=== PATIENT | male | born 1935 | race Caucasian/White ===

== ENCOUNTER → 2023-06-15 09:22 | Outpatient (REF) | payer MEDICARE, OTHER, SELFPAY ==
[2023-06-15 10:04] LABS: % Basophils 0.7 % (0-2); % Eosinophils 5.6 % (0-6); % Immature Granulocytes 0.4 % (0-0.5); % Lymphocytes 8.9 % (20.5-51.1); % Monocytes 11.9 % (1.7-9.3); % Neutrophils 72.5 % (42.2-75.2); Absolute Eosinophils 0.3 10^3/uL (0-0.7); Absolute Lymphocytes 0.4 10^3/uL (1.2-3.4); Absolute Monocytes 0.6 10^3/uL (0.1-0.6); Absolute Neutrophils 3.3 10^3/uL (1.4-6.5); Hematocrit 32.3 % (39.0-52.0); Hemoglobin 10.8 g/dL (13.0-18.0); Mean Corp Hgb Conc. 33.4 g/dL (33.0-37.0); Mean Corpuscular Hgb 32.7 pg (27.0-31.0); Mean Corpuscular Volume 97.9 fL (80.0-94.0); Mean Platelet Volume 11.1 fL (7.4-10.4); Nucleated Red Blood Cells % 0 % (-); Platelet Count 192 10^3/uL (130-400); Red Cell Dist. Width 12.7 % (11.5-14.5); White Blood Cell Count 4.6 10^3/uL (4.8-10.8)
[2023-06-15 10:29] LABS: Blood Urea Nitrogen 79 mg/dl (9-20); Carbon Dioxide 27 mmol/L (22-30); Chloride 107 mmol/L (98-107); Glucose 154 mg/dl (70-99); Iron 86 ug/dl (49-181); Potassium 4.4 mmol/L (3.5-5.1); Sodium 140 mmol/L (135-145); eGFR 13.89
[2023-06-15 10:38] LABS: Percent Saturation 34 % (20-50); Total Iron Binding Capacity 247 ug/dl (261-462)
== END ==
LOC: REG 09:22
PROVIDERS: ATTENDING PHYSICIAN Internal Medicine Hematology & Oncology; FAMILY PHYSICIAN Family Medicine
DX: N18.4 Chronic kidney disease, stage 4 (severe) (principal); D51.8 Other vitamin B12 deficiency anemias; D50.8 Other iron deficiency anemias; C91.40 Hairy cell leukemia not having achieved remission; D63.1 Anemia in chronic kidney disease
CPT/HCPCS: 36415; 80048; 82728; 83540; 83550; 85025

== ENCOUNTER → 2023-06-16 12:14 | Outpatient (REF) | payer MEDICARE, OTHER, SELFPAY | LOC: RAD 12:14 | PROVIDERS: ATTENDING PHYSICIAN Specialist; FAMILY PHYSICIAN Family Medicine | DX: N18.4 Chronic kidney disease, stage 4 (severe) (principal) | CPT/HCPCS: 76770 ==

== ENCOUNTER → 2023-07-22 09:28 | Outpatient (REF) | payer MEDICARE, OTHER, SELFPAY ==
[2023-07-22 09:50] LABS: % Basophils 0.9 % (0-2); % Eosinophils 7.9 % (0-6); % Immature Granulocytes 0.2 % (0-0.5); % Lymphocytes 6.8 % (20.5-51.1); % Monocytes 10.5 % (1.7-9.3); % Neutrophils 73.7 % (42.2-75.2); Absolute Basophils 0.1 10^3/uL (0-0.2); Absolute Eosinophils 0.5 10^3/uL (0-0.7); Absolute Lymphocytes 0.4 10^3/uL (1.2-3.4); Absolute Monocytes 0.6 10^3/uL (0.1-0.6); Absolute Neutrophils 4.2 10^3/uL (1.4-6.5); Hematocrit 33.4 % (39.0-52.0); Mean Corp Hgb Conc. 32.9 g/dL (33.0-37.0); Mean Corpuscular Hgb 31.9 pg (27.0-31.0); Mean Corpuscular Volume 96.8 fL (80.0-94.0); Mean Platelet Volume 10.8 fL (7.4-10.4); Nucleated Red Blood Cells % 0 % (-); Platelet Count 185 10^3/uL (130-400); Red Blood Cell Count 3.45 10^6/uL (4.70-6.10); Red Cell Dist. Width 12.3 % (11.5-14.5); White Blood Cell Count 5.7 10^3/uL (4.8-10.8)
[2023-07-22 10:15] LABS: Blood Urea Nitrogen 79 mg/dl (9-20); Calcium 9.5 mg/dl (8.4-10.2); Carbon Dioxide 29 mmol/L (22-30); Chloride 105 mmol/L (98-107); Glucose 201 mg/dl (70-99); Iron 97 ug/dl (49-181); Potassium 4.8 mmol/L (3.5-5.1); Sodium 139 mmol/L (135-145); eGFR 13.89
[2023-07-22 10:25] LABS: Percent Saturation 42 % (20-50); Total Iron Binding Capacity 227 ug/dl (261-462)
== END ==
LOC: REG 09:28
PROVIDERS: ATTENDING PHYSICIAN Specialist; FAMILY PHYSICIAN Family Medicine; OTHER PHYSICIAN Internal Medicine Hematology & Oncology
DX: D51.8 Other vitamin B12 deficiency anemias (principal); D50.8 Other iron deficiency anemias; C91.40 Hairy cell leukemia not having achieved remission; D63.1 Anemia in chronic kidney disease; N18.4 Chronic kidney disease, stage 4 (severe); I10 Essential (primary) hypertension
CPT/HCPCS: 36415; 80048; 82728; 83540; 83550; 85025

== ENCOUNTER → 2023-08-24 08:01 | Outpatient (REF) | payer MEDICARE, OTHER, SELFPAY ==
[2023-08-24 09:55] LABS: % Basophils 0.7 % (0-2); % Eosinophils 6.3 % (0-6); % Immature Granulocytes 0.2 % (0-0.5); % Lymphocytes 9.8 % (20.5-51.1); % Monocytes 9.8 % (1.7-9.3); % Neutrophils 73.2 % (42.2-75.2); Absolute Eosinophils 0.3 10^3/uL (0-0.7); Absolute Lymphocytes 0.4 10^3/uL (1.2-3.4); Absolute Monocytes 0.4 10^3/uL (0.1-0.6); Hematocrit 31.6 % (39.0-52.0); Hemoglobin 10.3 g/dL (13.0-18.0); Mean Corp Hgb Conc. 32.6 g/dL (33.0-37.0); Mean Corpuscular Hgb 32.3 pg (27.0-31.0); Mean Corpuscular Volume 99.1 fL (80.0-94.0); Mean Platelet Volume 11.6 fL (7.4-10.4); Nucleated Red Blood Cells % 0 % (-); Platelet Count 196 10^3/uL (130-400); Red Blood Cell Count 3.19 10^6/uL (4.70-6.10); White Blood Cell Count 4.1 10^3/uL (4.8-10.8)
[2023-08-24 10:43] LABS: eGFR 13.48
[2023-08-24 10:44] LABS: ALT (SGPT) 16 U/L (0-50); AST (SGOT) 22 U/L (17-59); Albumin 3.8 g/dl (3.5-5.0); Alkaline Phosphatase 163 U/L (38-126); Blood Urea Nitrogen 82 mg/dl (9-20); Calcium 9.4 mg/dl (8.4-10.2); Carbon Dioxide 25 mmol/L (22-30); Chloride 106 mmol/L (98-107); Glucose 269 mg/dl (70-99); Iron 98 ug/dl (49-181); Potassium 4.9 mmol/L (3.5-5.1); Sodium 138 mmol/L (135-145); Total Bilirubin 0.4 mg/dl (0.2-1.3); Total Protein 6.9 g/dl (6.3-8.2)
[2023-08-24 10:50] LABS: Percent Saturation 41 % (20-50); Total Iron Binding Capacity 238 ug/dl (261-462)
[2023-08-24 11:39] LABS: Glycohemoglobin (HgbA1c) 9.4 % (4.0-5.6)
== END ==
LOC: REG 08:01
PROVIDERS: ATTENDING PHYSICIAN Physician Assistant; FAMILY PHYSICIAN Family Medicine; REFERRING PHYSICIAN Internal Medicine Hematology & Oncology
DX: E10.65 Type 1 diabetes mellitus with hyperglycemia (principal); D51.8 Other vitamin B12 deficiency anemias; D50.8 Other iron deficiency anemias; C91.40 Hairy cell leukemia not having achieved remission; D63.1 Anemia in chronic kidney disease; N18.4 Chronic kidney disease, stage 4 (severe)
CPT/HCPCS: 36415; 80053; 82728; 83036; 83540; 83550; 85025

== ENCOUNTER → 2023-09-30 08:51 | Outpatient (REF) | payer MEDICARE, OTHER, SELFPAY ==
[2023-09-30 10:44] LABS: Blood Urea Nitrogen 80 mg/dl (9-20); Calcium 9.3 mg/dl (8.4-10.2); Carbon Dioxide 27 mmol/L (22-30); Chloride 104 mmol/L (98-107); Glucose 266 mg/dl (70-99); Potassium 4.2 mmol/L (3.5-5.1); Sodium 143 mmol/L (135-145); eGFR 14.32
== END ==
LOC: REG 08:51
PROVIDERS: ATTENDING PHYSICIAN Family Medicine; REFERRING PHYSICIAN Specialist
DX: N18.4 Chronic kidney disease, stage 4 (severe) (principal)
CPT/HCPCS: 36415; 80048

== ENCOUNTER → 2023-12-01 07:49 | Outpatient (REF) | payer MEDICARE, OTHER, SELFPAY ==
[2023-12-01 09:13] LABS: % Basophils 0.7 % (0-2); % Eosinophils 4.6 % (0-6); % Immature Granulocytes 0.5 % (0-0.5); % Lymphocytes 13.7 % (20.5-51.1); % Monocytes 10.9 % (1.7-9.3); % Neutrophils 69.6 % (42.2-75.2); Absolute Eosinophils 0.2 10^3/uL (0-0.7); Absolute Lymphocytes 0.6 10^3/uL (1.2-3.4); Absolute Monocytes 0.5 10^3/uL (0.1-0.6); Hematocrit 31.8 % (39.0-52.0); Hemoglobin 10.7 g/dL (13.0-18.0); Mean Corp Hgb Conc. 33.6 g/dL (33.0-37.0); Mean Corpuscular Hgb 32.9 pg (27.0-31.0); Mean Corpuscular Volume 97.8 fL (80.0-94.0); Mean Platelet Volume 11.6 fL (7.4-10.4); Nucleated Red Blood Cells % 0 % (-); Platelet Count 175 10^3/uL (130-400); Red Blood Cell Count 3.25 10^6/uL (4.70-6.10); Red Cell Dist. Width 12.5 % (11.5-14.5); White Blood Cell Count 4.3 10^3/uL (4.8-10.8)
[2023-12-01 10:07] LABS: Blood Urea Nitrogen 87 mg/dl (9-20); Calcium 9.1 mg/dl (8.4-10.2); Carbon Dioxide 25 mmol/L (22-30); Chloride 106 mmol/L (98-107); Glucose 179 mg/dl (70-99); Iron 91 ug/dl (49-181); Percent Saturation 37 % (20-50); Potassium 4.7 mmol/L (3.5-5.1); Sodium 142 mmol/L (135-145); Total Iron Binding Capacity 240 ug/dl (261-462)
[2023-12-01 10:08] LABS: eGFR 12.65
== END ==
LOC: REG 07:49
PROVIDERS: ATTENDING PHYSICIAN Internal Medicine Hematology & Oncology; FAMILY PHYSICIAN Family Medicine; OTHER PHYSICIAN Internal Medicine Cardiovascular Disease; REFERRING PHYSICIAN Specialist
DX: D51.8 Other vitamin B12 deficiency anemias (principal); D50.8 Other iron deficiency anemias; C91.40 Hairy cell leukemia not having achieved remission; D63.1 Anemia in chronic kidney disease; N18.4 Chronic kidney disease, stage 4 (severe); I34.0 Nonrheumatic mitral (valve) insufficiency; I25.10 Atherosclerotic heart disease of native coronary artery without angina pectoris
CPT/HCPCS: 36415; 80048; 82728; 83540; 83550; 85025

== ENCOUNTER → 2023-12-22 07:00 | Outpatient (REF) | payer MEDICARE, OTHER, SELFPAY ==
[2023-12-22 07:49] LABS: % Basophils 0.4 % (0-2); % Eosinophils 5.6 % (0-6); % Immature Granulocytes 0.4 % (0-0.5); % Monocytes 12.2 % (1.7-9.3); % Neutrophils 67.4 % (42.2-75.2); Absolute Eosinophils 0.3 10^3/uL (0-0.7); Absolute Lymphocytes 0.6 10^3/uL (1.2-3.4); Absolute Monocytes 0.6 10^3/uL (0.1-0.6); Hematocrit 30.6 % (39.0-52.0); Mean Corp Hgb Conc. 32.7 g/dL (33.0-37.0); Mean Corpuscular Hgb 31.6 pg (27.0-31.0); Mean Corpuscular Volume 96.8 fL (80.0-94.0); Mean Platelet Volume 11.3 fL (7.4-10.4); Nucleated Red Blood Cells % 0 % (-); Platelet Count 183 10^3/uL (130-400); Red Blood Cell Count 3.16 10^6/uL (4.70-6.10); Red Cell Dist. Width 12.7 % (11.5-14.5); White Blood Cell Count 4.5 10^3/uL (4.8-10.8)
[2023-12-22 08:47] LABS: ALT (SGPT) 15 U/L (0-50); AST (SGOT) 21 U/L (17-59); Albumin 3.8 g/dl (3.5-5.0); Alkaline Phosphatase 148 U/L (38-126); Blood Urea Nitrogen 76 mg/dl (9-20); Calcium 9.2 mg/dl (8.4-10.2); Carbon Dioxide 26 mmol/L (22-30); Chloride 107 mmol/L (98-107); Glucose 208 mg/dl (70-99); Potassium 4.8 mmol/L (3.5-5.1); Sodium 142 mmol/L (135-145); Total Bilirubin 0.4 mg/dl (0.2-1.3); Total Protein 6.6 g/dl (6.3-8.2); eGFR 14.68
[2023-12-22 09:45] LABS: Glycohemoglobin (HgbA1c) 8.9 % (4.0-5.6)
== END ==
LOC: REG 07:00
PROVIDERS: ATTENDING PHYSICIAN Physician Assistant; FAMILY PHYSICIAN Family Medicine; REFERRING PHYSICIAN Specialist
DX: E10.65 Type 1 diabetes mellitus with hyperglycemia (principal); N18.4 Chronic kidney disease, stage 4 (severe)
CPT/HCPCS: 36415; 80053; 83036; 85025

== ENCOUNTER 2024-03-22 16:01 | Emergency (ER) | payer MEDICARE, OTHER, SELFPAY ==
[2024-03-22 16:03] VITALS: BP 190/73
[2024-03-22 17:16] VITALS: BP 173/64
[2024-03-22 17:16] LABS: % Basophils 0.4 % (0-2); % Eosinophils 4.9 % (0-6); % Immature Granulocytes 0.2 % (0-0.5); % Lymphocytes 13.7 % (20.5-51.1); % Monocytes 12.6 % (1.7-9.3); % Neutrophils 68.2 % (42.2-75.2); Absolute Eosinophils 0.2 10^3/uL (0-0.7); Absolute Lymphocytes 0.6 10^3/uL (1.2-3.4); Absolute Monocytes 0.6 10^3/uL (0.1-0.6); Hemoglobin 10.2 g/dL (13.0-18.0); Mean Corp Hgb Conc. 32.9 g/dL (33.0-37.0); Mean Corpuscular Hgb 32.1 pg (27.0-31.0); Mean Corpuscular Volume 97.5 fL (80.0-94.0); Mean Platelet Volume 11.4 fL (7.4-10.4); Nucleated Red Blood Cells % 0 % (-); Platelet Count 178 10^3/uL (130-400); Red Blood Cell Count 3.18 10^6/uL (4.70-6.10); Red Cell Dist. Width 12.7 % (11.5-14.5); White Blood Cell Count 4.5 10^3/uL (4.8-10.8)
--- NOTE | 2024-03-22 17:30 | ED.GENMED ---
History of Present Illness
General
Chief Complaint: Eye Problems
Source: patient and spouse
Exam Limitations: dementia
Time Seen by Provider: 03/22/24 17:10
Nursing documentation reviewed up to this point in time: agreed with
History of Present Illness
History of Present Illness:
88-year-old male with a past medical history of hypertension, hyperlipidemia, CHF, CVA, CKD, hairy cell leukemia, dementia who presents to the emergency room with his spouse for evaluation of double vision. Patient is somewhat limited as a
historian due to his dementia; his is at bedside and helps with history. He says that at some point he noticed that he was having occasional double vision with extreme deviation of his gaze towards the right. He cannot recall exactly when he
first noticed that but says he has had more than 1 episode since onset. He denies any issue at the present moment and says symptoms are intermittent. He mentioned it to his spouse today and she called the patient's interior design teacher to schedule an
appointment (he was supposed to be seen in April but she called to move the appointment up to next week). When she was describing his symptoms they recommended that he come to the emergency room first to be evaluated for any signs of stroke.
Apparently he did have a stroke in the distant past with presenting symptom of left-sided weakness and associated double vision; apparently he still has some mild left leg weakness but double vision had completely resolved. His is not sure
when his current symptoms started but says that he is usually quick to mention any abnormal symptoms and she first heard about symptoms today. Patient denies any headache, vision loss, speech difficulty, weakness in the arms or the legs.
Past History
Past History
ED Past Medical History: CAD, Cancer (Hairy cell leukemia), CVA (Right hemispheric lacunar infarcts 2010), HTN, Hypercholesterolemia, IDDM, Renal failure (Chronic kidney disease baseline creatinine of 2.0), Other (Peripheral neuropathy; B12
deficiency), Other (04/2014: TIA vs. Hypertensive encephalopathy) and Other (retinopathy, short-term memory loss, dementia)
ED Past Surgical History: Cardiac (PTCA with stent)
Patient has exhibited threatening behavior?: No
Social History
Tobacco: Non-smoker
Alcohol: Occasional
Drug: None
Personal:
Living: with family
Employment: Retired
Family History
Family History: CAD
Review of Systems
Review of Systems
All Other Systems: ROS reviewed and negative except as documented in HPI and ROS
EENT: Reports other (Double vision)
Cardiac: Denies chest pain
ABD/GI: Denies abdominal pain or vomiting
: Denies flank pain
Neurological: Denies dizzy, headache, weakness or numbness
Phy Exam
Physical Exam
Physical Exam:
General: Awake, alert, oriented x3; no acute distress
Head: Normocephalic, atraumatic
Eyes: Conjunctiva normal, EOMI without nystagmus-unable to reproduce diplopia at extreme gaze deviation (neither with both eyes open normal when testing tried to visually); visual jason are intact
Throat: Airway intact, handling secretions
Neck: Trachea midline, supple without meningismus
Lungs: Breathing comfortably no distress
Heart: Regular rate
Neuro: Cranial nerves intact 2 through 12, speech fluid no dysarthria or aphasia, no limb ataxia, motor and sensory function intact proximally and distally in the upper and lower extremities (no objective weakness noted even in the left leg where he
reports occasional deficit since prior stroke)
Skin: no rash
Extremities: Warm and well-perfused
Scores
NIH Stroke Score
Level of Consciousness: 0 - Alert
LOC Questions: 0-Answers both correctly
LOC Commands: 0-Performs both correctly
Best Horizontal Gaze: 0-Normal
Visual Jason: 0=Normal, no visual loss
Facial Palsy: 0=Normal, symmetrical
Motor - Right Arm: 0=No drift 10 seconds
Motor - Left Arm: 0=No drift 10 seconds
Motor - Right Le-No drift 5 seconds
Motor - Left Le-No drift 5 seconds
Limb Ataxia: 0-Absent
Sensation: 0-Normal
Best Language: 0-No aphasia
Dysarthria: 0-Normal
Extinction and Inattention: 0-No abnormality
Total Score:: 0
Heart Failure Risk
Heart Failure Risk Score: Not Applicable
Heart Score for Chest Pain Patients
STEMI patient?: Not applicable
Withdrawal Assessment of Alcohol
Withdrawal Assessment Completed?: Not applicable
Course
Orders/Labs/Results
Orders:
Orders
03/22/24 17:03
CMP [Comprehensive Metabolic Panel] Urgent
Complete Blood Count/With Diff Urgent
Ferritin Urgent
Comment: ADDON
Iron Urgent
Comment: ADDON
Total Iron Binding Urgent
Comment: ADDON
03/22/24 17:13
CT Head W/o Iv Contrast Urgent
Comment:
Reason For Exam: diplopia
03/22/24 17:29
Visual Acuity- Treatment ONCE
03/22/24 17:42
Add On- LAB Urgent
Tests Added?: ferritin, Iron, Total Iron binding
03/22/24 18:48
Electrocardiogram (*1) Urgent
Reason for Study: Atrial Fibrillation
EKG- Treatment ONCE
Abnormal Lab Results
03/22/24
17:03
WBC 4.5 L 10^3/uL
(4.8-10.8)
RBC 3.18 L 10^6/uL
(4.70-6.10)
Hgb 10.2 L g/dL
(13.0-18.0)
Hct 31.0 L %
(39.0-52.0)
MCV 97.5 H fL
(80.0-94.0)
MCH 32.1 H pg
(27.0-31.0)
MCHC 32.9 L g/dL
(33.0-37.0)
MPV 11.4 H fL
(7.4-10.4)
Absolute Lymphs (auto) 0.6 L 10^3/uL
(1.2-3.4)
Lymphocytes % 13.7 L %
(20.5-51.1)
Monocytes % 12.6 H %
(1.7-9.3)
Potassium 5.2 H mmol/L
(3.5-5.1)
BUN 91 H mg/dl
(9-20)
Creatinine 4.5 H* mg/dL
(0.7-1.3)
Glucose 212 H mg/dl
(70-99)
03/22/24 17:03
03/22/24 17:03
Vital Signs
Initial and Last Documented VS:
Initial Vital Signs
Pulse Resp BP Pulse Ox
62 16 190/73 98
03/22/24 16:03 03/22/24 16:03 03/22/24 16:03 03/22/24 16:03
Last Documented Vital Signs
Temp Pulse Resp BP Pulse Ox
36.6 C 61 9 191/81 98
03/22/24 16:07 03/22/24 18:00 03/22/24 18:00 03/22/24 18:00 03/22/24 18:00
MDM/Problems Addressed
Differential Diagnosis Includes:
Diplopia could be from eye muscle dysfunction, cranial nerve palsy, central process/stroke, cataract, lens dislocation
MDM/Problems Addressed:
88-year-old male with history as documented presents with occasional diplopia with extreme rightward gaze deviation. No symptoms at present. No other symptoms noted. He was referred by his interior design teacher to be assessed in the ER prior to visit
on this coming Monday, especially given history of stroke with similar symptoms. He is hypertensive here but otherwise normal vitals. Physical exam as above�notably no neurologic deficits or diplopia noted. Check basic screening labs. Patient
is supposed to get outpatient iron studies as well�ordered while here in the ER at his 's request. Check CT head. Reassess after the above.
Labs reviewed: CBC shows stable anemia, CMP shows CKD which is stable. Marginal hyperkalemia. CT head negative for any acute pathology. EKG shows sinus rhythm. Visual acuity somewhat worse in the right eye but this is not unusual status post
cataract surgery and retinal repair. Patient remains without diplopia. Discussed with neurology, patient already optimized medically even if this is TIA but suspect more likely primary ophthalmologic issue. No clear indication for admission to
the hospital, will discharge with planned ophthalmology follow-up. Spoke about return precautions all questions answered.
Chronic conditions affecting care:
Diabetes, hypertension, hyperlipidemia, CVA
Acute Exacerbation and/or Progression of Chronic Illness:
Acutely hypertensive
Acute Exacerbation and/or Progression of Chronic Illness: HTN
*Radiology
Radiology exam reviewed: radiology read reviewed
*Pulse Oximetry
Patient hypoxic: no
*EKG
Interpreted by ED Provider?: Yes
Heart Rate: 66
Rate: normal
Rhythm: sinus
[place]: normal axis
Interval: normal interval
QRS Pattern: normal QRS
Ischemia: T-wave inversion (Lateral T wave inversions similar to prior)
*Critical Care Note
Total Time (30-74mins, 75-104mins- exclusive of procedures): Not Applicable
Data Reviewed
Review of Other/Old Records Reveals: Labs and Records
Source: patient, records and spouse
Patient Management
Discussion with other providers: [employer] (Discussed with neurologist)
ED Attending Note
-
Portions of this chart may have been created with voice recognition software.� Occasional wrong word or��sound alike� substitutions may have occurred due to the inherent limitations of voice recognition software.
Discharge Plan
Departure
Patient Disposition: Home (Routine Discharge)
Date of Disposition: 03/22/24
Time of Disposition: 19:44
Patient with high blood pressure during this ER visit?: Yes
Discharge Problem:
Diplopia, Hypertension
Instructions: Double Vision (DC), BLOOD PRESSURE
Prescriptions:
No Action
atorvastatin 40 MG tablet
40 mg PO HS
clopidogrel 75 MG tablet
75 mg PO DAILY
Patient Own Insulin Pump
0 units SC .CONTINUOUSLY
Patient Comments:
09/14/22- SPOUSE PATIENT USES INSULIN LISPRO. PUMP CHANGED 09/14/22 GOOD FOR 3 DAYS. PTS PUMP CONTROLS BASAL RATE. HE GIVES HIMSELF BOLUS WITH MEALS AND HIGH BLOOD SUGARS. SPOUSE SAID HE NORMAL BS IS 150-180 AND DOES NOT DO WELL WITH LOWER BS
THEN THAT
acetaminophen [Tylenol] 325 mg Tablet
650 mg PO Q4HPRN PRN (Reason: MILD PAIN)
amlodipine 10 MG tablet
5 mg PO DAILY
pantoprazole 40 mg Tablet,Delayed Release (Dr/Ec)
40 mg PO DAILY Qty: 30 0RF
carvedilol 6.25 mg Tablet
6.25 mg PO BID Qty: 60 0RF
furosemide 20 mg tablet
40 mg PO DAILY@1200 Qty: 30 0RF
sodium bicarbonate 650 mg tablet
1,300 mg PO BID Qty: 120 0RF
cyanocobalamin (vitamin B-12) [Vitamin B-12] 1,000 mcg Tablet
1,000 mcg PO DAILY
doxazosin 2 MG tablet
1 mg PO HS
aspirin 81 MG tablet,delayed release (DR/EC)
81 mg PO DAILY Qty: 30 0RF
calcitriol 0.25 MCG capsule
0.25 mcg PO MOWEFR Qty: 30 0RF
Referrals:
Timothy Lema MD [Family Provider] - Follow up in 2-3 days
Activity Restrictions/Additional Instructions:
You should follow-up as scheduled with the interior design teacher. If your symptoms are worsening return to the emergency room immediately. Your blood pressure was elevated in the ER; you should call to schedule follow-up with your primary doctor to have
this reassessed.
Thank you for visiting the Emergency Department at [facility].
1. Please schedule a follow up appointment as directed. Call first thing tomorrow morning to make an appointment.
2. If indicated, please take your medications as instructed and indicated on discharge paperwork.
3. If any of your symptoms do not improve, or persist, or become more severe within 6-12 hours, please return to the emergency department for further care.
4. Please return to the emergency department if you develop a headache, neck pain/stiffness, fever greater than 100.4F, chest pain, shortness of breath, persistent nausea, vomiting, slurred speech, difficulty walking, numbness/tingling, weakness,
signs of infection or any other symptoms that are worrisome to you.
Please call [phone] if you have any questions.
Interventions
Interventions:
*Risk Screen - Suicide Last Done: 03/22/24 16:57
*General Assessment Last Done: 03/22/24 16:57
*Neglect/Abuse Screening Last Done: 03/22/24 16:57
*ED COVID-19 Vaccine History Last Done: 03/22/24 16:57
Discharge Date and Time
Print Language: MONEGASQUE
[2024-03-22 17:41] LABS: ALT (SGPT) 17 U/L (0-50); AST (SGOT) 22 U/L (17-59); Albumin 4.2 g/dl (3.5-5.0); Alkaline Phosphatase 119 U/L (38-126); Blood Urea Nitrogen 91 mg/dl (9-20); Calcium 9.2 mg/dl (8.4-10.2); Carbon Dioxide 26 mmol/L (22-30); Chloride 104 mmol/L (98-107); Glucose 212 mg/dl (70-99); Potassium 5.2 mmol/L (3.5-5.1); Sodium 143 mmol/L (135-145); Total Bilirubin 0.2 mg/dl (0.2-1.3); Total Protein 7.2 g/dl (6.3-8.2); eGFR 11.98
[2024-03-22 18:00] VITALS: BP 191/81
[2024-03-22 19:19] LABS: Iron 78 ug/dl (49-181)
[2024-03-22 19:22] VITALS: BP 178/73
[2024-03-22 19:29] LABS: Percent Saturation 28 % (20-50); Total Iron Binding Capacity 271 ug/dl (261-462)
== END 2024-03-22 20:06 | disposition home or self-care (01) ==
LOC: EMR 16:01
PROVIDERS: EMERGENCY PHYSICIAN Emergency Medicine; FAMILY PHYSICIAN Family Medicine
DX: H53.2 Diplopia (principal); I13.0 Hypertensive heart and chronic kidney disease with heart failure and stage 1 through stage 4 chronic kidney disease, or unspecified chronic kidney disease; I50.9 Heart failure, unspecified; E11.22 Type 2 diabetes mellitus with diabetic chronic kidney disease; N18.9 Chronic kidney disease, unspecified; C91.40 Hairy cell leukemia not having achieved remission; E78.00 Pure hypercholesterolemia, unspecified; E11.42 Type 2 diabetes mellitus with diabetic polyneuropathy; I25.10 Atherosclerotic heart disease of native coronary artery without angina pectoris; I48.91 Unspecified atrial fibrillation; F03.90 Unspecified dementia, unspecified severity, without behavioral disturbance, psychotic disturbance, mood disturbance, and anxiety; Z82.49 Family history of ischemic heart disease and other diseases of the circulatory system; Z86.73 Personal history of transient ischemic attack (TIA), and cerebral infarction without residual deficits; Z95.5 Presence of coronary angioplasty implant and graft
CPT/HCPCS: 99284; 70450; 80053; 82728; 83540; 83550; 85025; 93005

== ENCOUNTER → 2024-04-09 08:45 | Outpatient (REF) | payer MEDICARE, OTHER, SELFPAY ==
[2024-04-09 10:12] LABS: % Basophils 0.5 % (0-2); % Eosinophils 4.8 % (0-6); % Immature Granulocytes 0.3 % (0-0.5); % Lymphocytes 11.8 % (20.5-51.1); % Monocytes 8.8 % (1.7-9.3); % Neutrophils 73.8 % (42.2-75.2); Absolute Eosinophils 0.2 10^3/uL (0-0.7); Absolute Lymphocytes 0.5 10^3/uL (1.2-3.4); Absolute Monocytes 0.4 10^3/uL (0.1-0.6); Absolute Neutrophils 2.9 10^3/uL (1.4-6.5); Hematocrit 30.2 % (39.0-52.0); Hemoglobin 9.7 g/dL (13.0-18.0); Mean Corp Hgb Conc. 32.1 g/dL (33.0-37.0); Mean Corpuscular Hgb 31.9 pg (27.0-31.0); Mean Corpuscular Volume 99.3 fL (80.0-94.0); Mean Platelet Volume 11.5 fL (7.4-10.4); Nucleated Red Blood Cells % 0 % (-); Platelet Count 189 10^3/uL (130-400); Red Blood Cell Count 3.04 10^6/uL (4.70-6.10); Red Cell Dist. Width 12.8 % (11.5-14.5)
[2024-04-09 10:51] LABS: Blood Urea Nitrogen 89 mg/dl (9-20); Calcium 9.1 mg/dl (8.4-10.2); Carbon Dioxide 27 mmol/L (22-30); Chloride 107 mmol/L (98-107); Glucose 121 mg/dl (70-99); Iron 102 ug/dl (49-181); Potassium 4.9 mmol/L (3.5-5.1); Sodium 146 mmol/L (135-145); eGFR 13.02
[2024-04-09 11:00] LABS: Percent Saturation 39 % (20-50); Total Iron Binding Capacity 258 ug/dl (261-462)
[2024-04-09 11:02] LABS: Glycohemoglobin (HgbA1c) 8.6 % (4.0-5.6)
== END ==
LOC: REG 08:45
PROVIDERS: ATTENDING PHYSICIAN Internal Medicine Hematology & Oncology; FAMILY PHYSICIAN Family Medicine; REFERRING PHYSICIAN Specialist
DX: N18.4 Chronic kidney disease, stage 4 (severe) (principal); E10.3293 Type 1 diabetes mellitus with mild nonproliferative diabetic retinopathy without macular edema, bilateral; D51.8 Other vitamin B12 deficiency anemias; D50.8 Other iron deficiency anemias; C91.40 Hairy cell leukemia not having achieved remission; D63.1 Anemia in chronic kidney disease
CPT/HCPCS: 36415; 80048; 82728; 83036; 83540; 83550; 85025

== ENCOUNTER → 2024-05-18 07:55 | Outpatient (REF) | payer MEDICARE, OTHER, SELFPAY ==
[2024-05-18 09:17] LABS: % Basophils 0.6 % (0-2); % Eosinophils 4.6 % (0-6); % Immature Granulocytes 0.4 % (0-0.5); % Lymphocytes 10.2 % (20.5-51.1); % Monocytes 10.6 % (1.7-9.3); % Neutrophils 73.6 % (42.2-75.2); Absolute Eosinophils 0.3 10^3/uL (0-0.7); Absolute Lymphocytes 0.6 10^3/uL (1.2-3.4); Absolute Monocytes 0.6 10^3/uL (0.1-0.6); Hematocrit 29.3 % (39.0-52.0); Hemoglobin 9.5 g/dL (13.0-18.0); Mean Corp Hgb Conc. 32.4 g/dL (33.0-37.0); Mean Corpuscular Hgb 32.2 pg (27.0-31.0); Mean Corpuscular Volume 99.3 fL (80.0-94.0); Mean Platelet Volume 11.6 fL (7.4-10.4); Nucleated Red Blood Cells % 0 % (-); Platelet Count 196 10^3/uL (130-400); Red Blood Cell Count 2.95 10^6/uL (4.70-6.10); Red Cell Dist. Width 13.2 % (11.5-14.5); White Blood Cell Count 5.4 10^3/uL (4.8-10.8)
[2024-05-18 09:43] LABS: ALT (SGPT) 13 U/L (0-50); AST (SGOT) 19 U/L (17-59); Alkaline Phosphatase 124 U/L (38-126); Blood Urea Nitrogen 84 mg/dl (9-20); Carbon Dioxide 25 mmol/L (22-30); Chloride 103 mmol/L (98-107); Glucose 208 mg/dl (70-99); Iron 74 ug/dl (49-181); Potassium 4.3 mmol/L (3.5-5.1); Sodium 141 mmol/L (135-145); Total Bilirubin 0.3 mg/dl (0.2-1.3); Total Protein 6.8 g/dl (6.3-8.2); eGFR 11.37
[2024-05-18 09:46] LABS: Percent Saturation 29 % (20-50); Total Iron Binding Capacity 255 ug/dl (261-462)
[2024-05-18 10:00] LABS: Ferritin 91.9 ng/ml (17.9-464.0)
[2024-05-18 12:14] LABS: Glycohemoglobin (HgbA1c) 8.5 % (4.0-5.6)
== END ==
LOC: REG 07:55
PROVIDERS: ATTENDING PHYSICIAN Internal Medicine Hematology & Oncology; FAMILY PHYSICIAN Family Medicine; OTHER PHYSICIAN Specialist
DX: D51.8 Other vitamin B12 deficiency anemias (principal); D50.8 Other iron deficiency anemias; C91.40 Hairy cell leukemia not having achieved remission; D63.1 Anemia in chronic kidney disease; N18.4 Chronic kidney disease, stage 4 (severe); E10.22 Type 1 diabetes mellitus with diabetic chronic kidney disease
CPT/HCPCS: 36415; 80053; 82728; 83036; 83540; 83550; 85025